=== PATIENT | female | born 1955 | race Caucasian/White ===

== ENCOUNTER 2024-09-05 13:47 | Outpatient (OUT) | payer MEDICARE, SELFPAY ==
--- NOTE | 2024-09-05 13:56 | XR_ITS ---
[address] [address] Patient Name: AYO BENSON MRN: [id number] date: 1955 Sex: F Assigned Patient Location: [facility] Current Patient Location: Accession/Order Number: [id number] Exam Date: 09/05/2024 14:00 Report Date: 09/07/2024 06:33 At the request of: JAYSON HARDING Procedure: XR DEXA axial skeleton EXAMINATION: XR DEXA axial skeleton HISTORY: Osteoporosis Of Lumbar Spine COMPARISON: DEXA bone densitometry 08/20/2020 TECHNIQUE: Dual-energy X-ray absorptiometry (DXA) was performed. FINDINGS: SPINE ANALYSIS: Average bone mineral density is 0.972 g/cm2. T-score (standard deviation relative to young adult mean): -1.7 . +6.0% change since prior study. HIP ANALYSIS: Lowest bone mineral density is within the right femoral neck, 0.795 g/cm2. T-score (standard deviation relative to young adult mean): -1.7 . +5.6% change since prior study. XR/XR DEXA axial skeleton IMPRESSION: World Health Organization Classification: Osteopenia - Moderate Fracture Risk FRAX: Cannot be calculated. Pharmacologic treatment recommendations * No uniform recommendation applies to all patients. Management plans must be individualized. * Consider initiating pharmacologic treatment in postmenopausal women and men >= 50 years of age who have the following: Primary fracture prevention: * T-score <= - 2.5 at the femoral neck, total hip, lumbar spine, 33% radius (some uncertainty with existing data) by DXA. * Low bone mass (osteopenia: T-score between - 1.0 and - 2.5) at the femoral neck or total hip by DXA with a 10-year hip fracture risk >= 3% or a 10-year major osteoporosis-related fracture risk >= 20% (i.e., clinical vertebral, hip, forearm, or proximal humerus) based on the [place]-adapted FRAXregistered model. Secondary fracture prevention: * Fracture of the hip or vertebra regardless of BMD [4, 5]. * Fracture of proximal humerus, pelvis, or distal forearm in persons with low bone mass (osteopenia: T-score between - 1.0 and - 2.5). The decision to treat should be individualized in persons with a fracture of the proximal humerus, pelvis, or distal forearm who do not have osteopenia or low BMD [12, 13]. Samira MS, Ashleigh SL, Jeet KL, Alphonse EM, Patria KG, AJ, Uriel ES. The clinician's guide to prevention and treatment of osteoporosis. Osteoporos Int. 2021;33(10):5009-2084. doi: 10.1007/y64553-295-14847-w. Epub 2021Mar 23. Erratum in: Osteoporos Int. 2021Jun 22;: PMID: [id number]; PMCID: [id number]. Electronically authenticated by: PAPI ARREOLA Date: 09/07/2024 06:33
== END 2024-09-05 13:48 | disposition home or self-care (01) ==
LOC: RAD 13:47
PROVIDERS: Visit Provider Family Medicine
DX: M85.88 Other specified disorders of bone density and structure, other site (principal)
CPT/HCPCS: 77080